=== PATIENT | female | born 1960 | race Caucasian/White ===

== ENCOUNTER 2016-10-15 12:59 | Emergency (ER) | payer OTHER ==
[~2016-10-15] VITALS: Ht 167.6 cm; Wt 70.0 kg
[2016-10-15] MEDS ORDERED: LIDOCAINE 1%-EPI 1:100K, 20ML SQ ONE ×2 (14:00)
[2016-10-15] MEDS ORDERED: DIPH,PERTUSS(ACELL),TET VAC/PF 0.5 ML IM-VACC ONE ×2 (14:00→14:24)
[2016-10-15] MEDS ORDERED: BACITRACIN ZINC OINT 500U/GM, 0.9 GM ONE (14:39)
[2016-10-15 14:46] VITALS: BP 129/75
== END 2016-10-15 14:50 | disposition home or self-care (01) ==
LOC: ED 14:40
DX: S01.01XA Laceration without foreign body of scalp, initial encounter (principal); W19.XXXA Unspecified fall, initial encounter; Y93.89 Activity, other specified; Y92.832 Beach as the place of occurrence of the external cause; Y99.8 Other external cause status
CPT/HCPCS: 12011; 90471; 90715